=== PATIENT | female | born 1945 | race Caucasian/White ===

== ENCOUNTER 2017-03-09 15:59 | Inpatient (IN) | payer MEDICARE, OTHER ==
[2017-03-09 17:50] LABS: #Eosinphils 0.3 thou/uL (0.0-0.7); #Lymphocytes 2.7 thou/uL (1.20-3.40); #Monocytes 0.7 thou/uL (0.11-0.59); #Neutrophils 10.3 thou/uL (1.40-6.50); %Basophils 0.3 % (0.0-1.0); %Eosinophils 1.9 % (0.0-10.0); %Lymphocytes 19.1 % (21.0-51.0); %Monocytes 5.1 % (0.0-10.0); Hematocrit 48.3 % (36.0-47.0); Mean Platelet Volume 6.3 fL (7.4-10.4); Red Blood Cell (RBC) Count 4.93 mill/uL (4.20-5.40)
[2017-03-09 18:06] LABS: Lactic Acid - Sepsis 1.9 mmol/L (0.5-2.2)
[2017-03-09 18:11] LABS: ALT (SGPT) 17 U/L (8-55); AST (SGOT) 15 U/L (5-34); Alkaline Phosphatase 71 U/L (40-150); Anion Gap 16 mmol/L (10-20); BUN (Urea Nitrogen) 11 mg/dL (9.8-20.1); Bilirubin, Total 0.4 mg/dL (0.2-1.2); Calc. Creatinine Clearance 0 mL/min (70-130); Calcium 9.8 mg/dL (7.8-10.44); Carbon Dioxide 25 mmol/L (23-31); Chloride 103 mmol/L (98-107); Estimated GFR-MDRD Greater than 90; Globulin 3.1 g/dL (2.4-3.5); Protein, Total 7.3 g/dL (6.0-8.3)
[2017-03-09] MEDS ORDERED: Meropenem 1 GM in Sodium Chloride 0.9% 100 ML IVPB SCH (20:00)
[2017-03-09] MEDS ORDERED: MEROPENEM 1 GM/50 ML 1 GM in Premix Bag 1 BAG IVPB SCH (20:15)
[2017-03-09] MEDS ORDERED: Ondansetron ODT 4 MG TAB PO PRN (20:50)
[2017-03-09] MEDS ORDERED: Acetaminophen 325 MG TAB PO PRN ×2 (20:50→23:16)
[2017-03-09] MEDS ORDERED: Bisacodyl 5 MG TAB PO PRN ×2 (20:50→23:28)
[2017-03-09 22:31] VITALS: BMI 28.1
[2017-03-09] MEDS ORDERED: Atropine Sulfate 1% Ophth Soln 5 ml Bottle EA EYE PRN (23:16)
[2017-03-09] MEDS ORDERED: Cyclobenzaprine 10 MG TAB PO PRN (23:28)
[2017-03-09] MEDS ORDERED: Cepastat Lozenges 1 LOZ PO PRN (23:28)
[2017-03-09] MEDS ORDERED: Promethazine HCl 25 MG SUPP PR PRN (23:28)
[2017-03-09] MEDS ORDERED: Preparation H Ointment 28 GM TUBE PR PRN (23:28)
[2017-03-09] MEDS ORDERED: Loratadine 10 MG TAB PO PRN (23:28)
[2017-03-09] MEDS ORDERED: Mag-Al Plus 1200 MG/1200 MG/120 MG/30 ML UDCUP PO PRN (23:28)
[2017-03-09] MEDS ORDERED: Nystatin Cream 15 GM TUBE TOP PRN (23:28)
[2017-03-09] MEDS ORDERED: Bisacodyl 10 MG SUPP PR PRN (23:28)
[2017-03-09] MEDS ORDERED: Oxymetazoline HCl 0.05% ( 15 ML ) NASAL PRN (23:28)
[2017-03-09] MEDS ORDERED: Artificial Tears 18 DROP/0.9 ML EA EYE PRN (23:28)
[2017-03-09] MEDS ORDERED: Milk Of Magnesia 30 ML UDCUP PO PRN (23:28)
[2017-03-10] MEDS: Lorazepam 1 MG TAB PO PRN ×2 (01:31→19:49)
[2017-03-10] MEDS: Sodium Chloride 0.9% 1,000 ML IV SCH ×4 (01:31→20:23)
[2017-03-10] MEDS ORDERED: MEROPENEM 1 GM/50 ML 1 GM in Premix Bag 1 BAG IVPB SCH ×2 (04:00→05:00)
[2017-03-10] MEDS ORDERED: Meropenem 1 GM in Sodium Chloride 0.9% 100 ML IVPB SCH (04:00)
[2017-03-10 05:19] LABS: #Basophils 0.1 thou/uL (0.0-0.2); #Eosinphils 0.3 thou/uL (0.0-0.7); #Lymphocytes 5.2 thou/uL (1.20-3.40); #Monocytes 1.1 thou/uL (0.11-0.59); #Neutrophils 8.4 thou/uL (1.40-6.50); %Basophils 0.7 % (0.0-1.0); %Eosinophils 1.7 % (0.0-10.0); %Lymphocytes 34.4 % (21.0-51.0); %Monocytes 7.3 % (0.0-10.0); Hematocrit 44.6 % (36.0-47.0); Mean Platelet Volume 6.7 fL (7.4-10.4); Red Blood Cell (RBC) Count 4.54 mill/uL (4.20-5.40); White Blood Cell (WBC) Count 15.1 thou/uL (4.8-10.8)
[2017-03-10 05:36] LABS: Anion Gap 15 mmol/L (10-20); BUN (Urea Nitrogen) 8 mg/dL (9.8-20.1); Calc. Creatinine Clearance 122 mL/min (70-130); Calcium 9.1 mg/dL (7.8-10.44); Carbon Dioxide 24 mmol/L (23-31); Chloride 104 mmol/L (98-107); Estimated GFR-MDRD Greater than 90
[2017-03-10] MEDS ORDERED: Oxymetazoline HCl 0.05% ( 15 ML ) NASAL PRN (05:53)
--- NOTE | 2017-03-10 06:19 | PDOC.FM ---
- Subjective Subjective: Patient doing well this AM. No significant overnight events. Patient denies any dysuria. She does have indwelling catheter that gets changed weekly. Over a week ago they changed the catheter and noted it to have a lot of sediment. Patient was never symptomatic, however, they opted to do UA and urine culture which grew proteus >100,000. Patient denies any shortness of breath, chest pain , fever, or chills. - Objective MAR Reviewed: Yes Vital Signs & Weight: Vital Signs (12 hours) Temp Pulse Resp Pulse Ox 03/09/17 23:20 97.7 F 76 16 98 I&O: 03/08/17 03/09/17 03/10/17 06:59 06:59 06:59 Intake Total 1020 Output Total 400 Balance 620 Result Diagrams: 03/10/17 04:31 03/10/17 04:31 EKG Reviewed by me: No Radiology Reviewed by me: No <Afua Buchanan - Last Filed: 03/10/17 08:33> - Objective Vital Signs & Weight: Vital Signs (12 hours) Temp Pulse Resp Pulse Ox 03/10/17 10:43 76 03/10/17 07:55 97.7 F 76 16 97 03/09/17 23:20 97.7 F 76 16 98 I&O: 03/09/17 03/10/17 03/11/17 06:59 06:59 06:59 Intake Total 1020 Output Total 400 Balance 620 Result Diagrams: 03/10/17 04:31 03/10/17 04:31 <Coleman Styles - Last Filed: 03/10/17 10:53> Phys Exam - Physical Examination Constitutional: NAD HEENT: moist MMs, sclera anicteric Neck: supple Respiratory: clear to auscultation bilateral Cardiovascular: RRR, no significant murmur Gastrointestinal: soft, non-tender, no distention, positive bowel sounds Musculoskeletal: pulses present Atrophy of UE's and LE's Quadriplegia Psychiatric: A&O x 3 Skin: no rash, cap refill <2 seconds <Afua Buchanan - Last Filed: 03/10/17 08:33> Dx/Plan (1) UTI (urinary tract infection) Status: Acute (2) Leukocytosis Code(s): D72.829 - ELEVATED WHITE BLOOD CELL COUNT, UNSPECIFIED Status: Acute (3) Multiple sclerosis Code(s): G35 - MULTIPLE SCLEROSIS Status: Chronic (4) Hyperlipidemia Code(s): E78.5 - HYPERLIPIDEMIA, UNSPECIFIED Status: Acute (5) Glaucoma Code(s): H40.9 - UNSPECIFIED GLAUCOMA Status: Acute - Plan Plan: Plan: UTI requiring IV antibiotics - Outside cultures show sensitivities to all oral antibiotics for which patient is allergic; grew proteus >100,000 - Strict I&O's - AM CBC's - Consult ID - Urine cx pending - Continue meropenem Leukocytosis - 2/2 to above Multiple sclerosis - Continue home medications - Quadriplegia 2/2 MS HLD - Continue home medications Glaucoma - Continue home medications Hx of unknown arrhythmia - Continue verapamil <Afua Buchanan - Last Filed: 03/10/17 08:33> Attending Addendum - Attending Addendum I personally evaluated the patient and discussed the management with Dr. Buchanan I agree with the History, Examination, Assessment and Plan documented above with any addition or exceptions noted below. Complicated situation. Patient with MS, chronic indwelling mares and recurrent UTIs. She is allergic to multiple drugs. She is currently asymptomatic, although her WBC count is elevated. She denies fever, nausea, vomiting, or pain , although I don't think she can feel pain from her bladder. Dr. Renee is familiar with her and we will ask for his help. Not sure we have to treat this infection. I would suggest using a silver impregnated catheter now and in the future. <Coleman Styles - Last Filed: 03/10/17 10:53>
[2017-03-10 06:36] LABS: Bilirubin Negative (Negative); Blood, Urine Moderate (Negative); Glucose, Urine (Dipstick) Negative (Negative); Ketone, Urine Trace mg/dL (Negative); Nitrite Negative (Negative); Protein, Urine (Dipstick) 30 mg/dL (Neg-Trace); Urobilinogen 0.2 mg/dL (0.2-1.0)
[2017-03-10 06:39] LABS: Bacteria/HPF 4+ HPF (None Seen); RBC/HPF 21-50 HPF (0-3); Squamous Epithelial None Seen HPF (0-3)
[2017-03-10 07:42] LABS: Yeast-All Forms None Seen HPF (None Seen)
[2017-03-10] MEDS ORDERED: fentaNYL 75 mcg/hour Patch TD SCH (09:00)
[2017-03-10] MEDS: Multivitamin W/ Minerals 1 TAB PO SCH (09:27)
[2017-03-10] MEDS: Ascorbic Acid 500 mg Chewable Tablet PO SCH ×2 (09:27→20:04)
[2017-03-10] MEDS: Senokot S 8.6-50 MG TAB PO SCH ×3 (09:27→20:05)
[2017-03-10] MEDS: Floranex Packet PO SCH (09:28)
[2017-03-10] MEDS: Enoxaparin Sodium 40 MG/0.4 ML SYRINGE SC SCH (09:28)
[2017-03-10] MEDS: Verapamil SR 120 MG TAB PO SCH (09:38)
[2017-03-10] MEDS: Timolol 0.5% Ophth Soln 5 ml Bottle EA EYE SCH ×2 (10:43→19:59)
--- NOTE | 2017-03-10 11:49 | HP-2 ---
CODE STATUS: DNR. PRIMARY CARE PHYSICIAN: Kian Nova ATTENDING: Dr. Chris Dominguez RESIDENT: Rhonda Mathews D.O. HISTORIAN: Patient. CHIEF COMPLAINT: Urinary tract infection. HISTORY OF PRESENT ILLNESS: The patient is a 71-year-old female who was transferred here from outside facility [facility] for a positive UA and urine culture growing out Proteus. Urine culture is pansensitive except for Bactrim, the problem is all other p.o. medications that the bacteria is sensitive to are known drug allergies of the patient. The patient is asymptomatic and denies any dysuria, no back pain or flank pain, no suprapubic pain. No frequency or urgency. No altered mental status or confusion. No fever, tachycardia or white count and is initially seen asymptomatic in our opinion. When talking with [facility] it is evident that there is concern for a symptomatic UTI with reported increased confusion in the patient by director distribution at [facility] The patient has a history of neurogenic bladder and has a cath in place. It gets changed once weekly, last changed on 03/05/2017. The patient also has a past history of UTIs, one in which she was seen for 1 year ago here in the hospital and met sepsis criteria, and Dr. Renee was consulted for antibiotic treatment due to her known allergies. In the ER, she received 1 gram meropenem. PAST MEDICAL HISTORY: 1. Hyperlipidemia. 2. MS. 3. Chronic pain. 4. ? Hydrocephalus. PAST SURGICAL HISTORY: Back, shoulder, kidney, stent. ALLERGIES: 1. CEPHALEXIN MONOHYDRATE. 2. CEPHALEXIN. 3. CIMETIDINE. 4. CIMETIDINE HCl. 5. CIPRO. 6. CIPRO HCL. 7. DEXTROSE. 8. DOXYCYCLINE. 9. LATEX. 10. MORPHINE. 11. . 12. PENICILLIN. 13. POLYETHYLENE GLYCOL. 14. PSYLLIUM HUSK AND SEED. 15. SUCROSE. 16. SULFA. MEDICATIONS: The patient did bring updated medication list from [facility]. The patient takes Crestor, cyclobenzaprine, fentanyl, Florajen, lactulose, lorazepam, Lumigan, Milk of Magnesia, Senna and verapamil. FAMILY HISTORY: Noncontributory. SOCIAL HISTORY: Denies tobacco, alcohol and drug use. REVIEW OF SYSTEMS: A 12-point review of systems was performed. The patient denies those mentioned in the HPI as well as fever, chills, weight changes, appetite changes, abdominal pain, flank pain, dysuria. PHYSICAL EXAMINATION: VITAL SIGNS: Blood pressure 137/74, pulse 78, respiratory rate 18, T-max 98.1, pulse ox 98% on room air. Current weight 56.7 kilograms. GENERAL: The patient is alert and oriented x4, no acute distress, well- nourished. EYES: EOMI. NECK: Supple, without lymphadenopathy. RESPIRATORY: Normal. No retractions. Clear to auscultation bilaterally. ABDOMEN: Soft, nontender. Bowel sounds present. No mass or distention. EXTREMITIES: No clubbing, cyanosis or edema. MUSCULOSKELETAL: GCS 15. PSYCHIATRIC: Appropriate. MUSCULOSKELETAL: Structure within normal limits. NEUROLOGIC: No focal deficit. Does report chronic quadriplegia with MS disease. PSYCHIATRIC: Appropriate. LABORATORY DATA: 1. CBC, white blood cell count 14, hemoglobin 15.7, hematocrit 48.3, platelets 370. 2. Chemistry: Sodium 140, potassium 3.6, chloride 103, CO2 25, BUN 11, creatinine 0.47, glucose 118. GFR greater than 90. 3. Calcium 9.8, total protein 7.3, albumin 4.2, total bilirubin 0.4, AST 15 and ALT 17, and alkaline phosphatase 71. 4. Lactic acid was 1.9 and normal. ASSESSMENT AND PLAN: 1. Urinary tract infection. Asymptomatic bacteria versus early signs of bacterial cystitis. We will treat for bacterial cystitis in only on the basis of history reported by [facility]iary physician who saw her today. It is possible that the patient has transient symptoms and/or has a baseline state of which we are not aware of. We will treat with IV meropenem and IV fluids at 120mls/hr. Blood cultures and urine cultures are pending, as well as urinalysis. As stated above, the patient does not meet systemic inflammatory response syndrome criteria. Likely consult ID to verify proper treatment. 2. Multiple sclerosis, quadriplegic. We will provide home medications and supportive care. Was able to receive handicap call button from [facility]. 3. Hyperlipidemia. We will provide home medications. 4. Chronic pain, we will provide home medications. 5. History of arrhythmia, we will continue verapamil. 6. Anxiety; home meds and special call button in place. 6. Prophylaxis. Lovenox. DISPOSITION AND LENGTH OF HOSPITAL STAY: 1-2 days. Symptomatic medications will be provided. The history and physical exam as well as management discussed with Dr. Chris Dominguez. [facility]ITAL[facility]
--- NOTE | 2017-03-10 19:25 | CON ---
DATE OF CONSULTATION: 03/10/2017 REASON FOR CONSULTATION: Urinary tract findings. HISTORY OF PRESENT ILLNESS: A 71-year-old known to us from prior visits, who has a longstanding history of multiple sclerosis with severe neurological impairment with quadriparesis, hypertension, neurogenic bladder, requiring indwelling Gay catheter and prior urinary tract complications including nephrolithiasis, which has required surgical interventions. I last saw her in 03/2016, when she presented with nausea and vomiting and at that time, she was treated with carbapenem for an E. coli isolate. Therapy was given for about 10 days. She has been in the hospital since. This time she was brought in and the patient herself was surprised that she was brought into the hospital, the main reason was because they found some abnormalities in the urinary tract and they sent her to be admitted. Initial findings with a blood pressure 137/74, pulse 78, respiratory rate 18, temperature 98.1. Patient actually felt pretty well, considering her neurological impairment, denied any headaches, no vomiting , no visual symptoms, sore throat, no odynophagia, no diarrhea, continues with a Gay catheterization. No respiratory symptoms. Her initial labs with WBC count 15.1, hemoglobin 14.8, platelets 325 with 72% neutrophils. The patient of note always keeps mildly to moderately elevated WBC count. I think her normal baseline level was in the lower teens for WBC count. The creatinine was normal and other electrolytes were within normal limits. Albumin was 4.2 and urinalysis as expected had pyuria. Since she has a chronic indwelling Gay catheter. Cultures have been obtained. PAST MEDICAL HISTORY: Includes severe multiple sclerosis with quadriparesis, hypertension, neurogenic bladder, nephrolithiasis, prior urological interventions, and then no recurrence of stones since last year, prior CYCLE LIAISON shunt placement, recurrent UTIs, and chronic indwelling Gay catheter. SOCIAL HISTORY: Resident at [facility] in [place]. Never smoker. ALLERGIES: KEFLEX, CIPRO, DOXY, PENICILLIN, SULFA DRUGS, MACROBID. FAMILY HISTORY: Diabetes type 2. MEDICATION LIST: Flexeril, Colace, Lovenox, Duragesic, Xalatan, Ativan, verapamil, and currently p.r.n. medications, Floranex, vitamin C, Dulcolax, Flexeril, Lovenox, Motrin, multivitamins, Claritin, Zofran, Crestor, Phenergan p.r.n., verapamil. PHYSICAL EXAMINATION: VITAL SIGNS: Patient has been afebrile in the hospital. Blood pressure 140/70 , pulse 76, respirations 16, and O2 sat 98%. SKIN: With no areas of skin breakdown. She has a Gay catheter in place, peripheral IV access. No lymphadenopathy. HEENT: Ocular movements are conjugate. Oral cavity with moist mucosa. Numerous teeth in place. GENERAL: She is pleasant, awake, alert. Generalized stiffness, hyperreflexia. LUNGS: With symmetric air entry without crackles or wheezing. HEART: S1 and S2, regular rate. No S3 or S4. ABDOMEN: Soft and not distended. No ascites, quadriparesis, hyperreflexia, Gay catheter. NEUROLOGIC: Cognitive function appears to be intact. LABORATORY DATA: Labs have been reviewed above. ASSESSMENT: Severe multiple sclerosis with quadriparesis, neurogenic bladder and prior complications referred to above this with no findings in the urinary tract that led to transfer of the patient to the hospital for admission. DISCUSSION: At this time, I do not believe that she has a strong reason to receive systemic antimicrobial therapy. We will repeat her ultrasound of the kidneys to make sure she has no hydronephrosis. If not, then I would send her back to the custodial with clarification that urinary cultures or urinalysis should not be submitted unless patient was symptomatic or with fever. CARLENE
--- NOTE | 2017-03-10 19:55 | ULT ---
EXAM: RENAL ULTRASOUND: 03/10/17 HISTORY: Evaluate for hydronephrosis. COMPARISON: None. TECHNIQUE: Sagittal and transverse imaging of the kidneys is performed. FINDINGS: Bilaterally, no hydronephrosis. Bilateral renal cortical thinning. Right kidney measures 11.7 x 4.4 x 4.3 cm. Left kidney measures 12.2 x 6.2 x 5.8 cm. There is an anechoic focus adjacent to the upper pole of th e left kidney measuring 4.3 x 4.6 x 4.7 cm. Exophytic cyst is favored. The urinary bladder is decompressed with Gay catheterization. IMPRESSION: 1. No hydronephrosis. 2. Bilateral renal cortical thinning. POS: RIP
[2017-03-10] MEDS: Ibuprofen 200 MG TAB PO PRN (19:58)
[2017-03-10] MEDS ORDERED: Latanoprost 0.005% Ophth Soln 2.5 ml Bottle EA EYE SCH (21:00)
[2017-03-11] MEDS: Ibuprofen 200 MG TAB PO PRN (02:39)
[2017-03-11] MEDS: Sodium Chloride 0.9% 1,000 ML IV SCH (05:15)
[2017-03-11] MEDS: Lorazepam 1 MG TAB PO PRN (05:16)
[2017-03-11 05:48] LABS: #Basophils 0.1 thou/uL (0.0-0.2); #Eosinphils 0.3 thou/uL (0.0-0.7); #Lymphocytes 5.5 thou/uL (1.20-3.40); #Monocytes 0.7 thou/uL (0.11-0.59); %Basophils 0.9 % (0.0-1.0); %Eosinophils 2.7 % (0.0-10.0); %Lymphocytes 47.4 % (21.0-51.0); %Monocytes 6.2 % (0.0-10.0); Hematocrit 42.7 % (36.0-47.0); Mean Platelet Volume 6.7 fL (7.4-10.4); Red Blood Cell (RBC) Count 4.34 mill/uL (4.20-5.40); White Blood Cell (WBC) Count 11.7 thou/uL (4.8-10.8)
[2017-03-11 06:03] LABS: Anion Gap 7 mmol/L (10-20); BUN (Urea Nitrogen) 7 mg/dL (9.8-20.1); Calc. Creatinine Clearance 131 mL/min (70-130); Calcium 8.5 mg/dL (7.8-10.44); Carbon Dioxide 28 mmol/L (23-31); Chloride 106 mmol/L (98-107); Estimated GFR-MDRD Greater than 90
--- NOTE | 2017-03-11 06:21 | PDOC.FM ---
- Subjective Subjective: Patient doing well this AM. No significant overnight events. She is alert and oriented. No complaints. Patient states her desire to return to the [place]. - Objective MAR Reviewed: Yes Vital Signs & Weight: Vital Signs (12 hours) Temp Pulse Resp BP BP Pulse Ox 03/10/17 20:35 98.0 F 82 18 03/10/17 20:00 98.0 F 82 18 131/63 95 03/10/17 19:59 75 136/81 I&O: 03/09/17 03/10/17 03/11/17 06:59 06:59 06:59 Intake Total 1020 480 Output Total 400 Balance 620 480 Result Diagrams: 03/11/17 04:10 03/11/17 04:10 EKG Reviewed by me: No Radiology Reviewed by me: No <Afua Buchanan - Last Filed: 03/11/17 08:11> - Objective Vital Signs & Weight: Vital Signs (12 hours) Temp Pulse Resp BP BP Pulse Ox 03/11/17 09:06 71 146/72 H 03/11/17 08:09 98 F 72 22 H 146/72 H 97 I&O: 03/10/17 03/11/17 03/12/17 06:59 06:59 06:59 Intake Total 1020 480 Output Total 400 1100 Balance 620 -620 Result Diagrams: 03/11/17 04:10 03/11/17 04:10 <Coleman Styles - Last Filed: 03/11/17 10:20> Phys Exam - Physical Examination Constitutional: NAD HEENT: moist MMs, sclera anicteric Neck: supple Respiratory: clear to auscultation bilateral Cardiovascular: RRR, no significant murmur Gastrointestinal: soft, non-tender, no distention, positive bowel sounds Musculoskeletal: no edema Quadriplegia Psychiatric: A&O x 3 Skin: no rash, cap refill <2 seconds <Afua Buchanan - Last Filed: 03/11/17 08:11> Dx/Plan (1) UTI (urinary tract infection) Status: Acute (2) Leukocytosis Code(s): D72.829 - ELEVATED WHITE BLOOD CELL COUNT, UNSPECIFIED Status: Acute (3) Multiple sclerosis Code(s): G35 - MULTIPLE SCLEROSIS Status: Chronic (4) Hyperlipidemia Code(s): E78.5 - HYPERLIPIDEMIA, UNSPECIFIED Status: Acute (5) Glaucoma Code(s): H40.9 - UNSPECIFIED GLAUCOMA Status: Acute QualifierTitle: Primary angle closure glaucoma type: chronic Laterality: bilateral - Plan Plan: Plan: UTI requiring IV antibiotics - Outside cultures show sensitivities to all oral antibiotics for which patient is allergic; grew proteus >100,000 - Strict I&O's; 400 ml out of mares - ID consulted; appreciate recs - Urine cx pending; will not treat if positive, patient asymptomatic and no signs of infection - D/C all systemic antibiotic therapy per ID - Patient to return home to [facility] with the understanding that UA and Urine cx should not be collected unless patient has fever, N/V, or other signs of infection - Consider silver impregnated catheter Leukocytosis - 2/2 to above Multiple sclerosis - Continue home medications - Quadriplegia 2/2 MS HLD - Continue home medications Glaucoma - Continue home medications Hx of unknown arrhythmia - Continue verapamil Dispo: D/C home today <Afua Buchanan - Last Filed: 03/11/17 08:11> Attending Addendum - Attending Addendum I personally evaluated the patient and discussed the management with Dr. Buchanan I agree with the History, Examination, Assessment and Plan documented above with any addition or exceptions noted below. We appreciate the help from Dr. Renee. He recommends no treatment for urine unless she is symptomatic. In this case, she is not. We will send her back to the correction today. He recommends no cultures unless she has a fever, pain, etc. Pharmacy suggests using silver impregnated catheters. We are discussing this with her primary, Dr. Escobedo. She is ready for discharge today. <Coleman Styles - Last Filed: 03/11/17 10:20>
[2017-03-11] MEDS ORDERED: Selenium Sulfide 1% Shampoo 210 ML BOT TOP SCH (09:00)
[2017-03-11] MEDS: Ascorbic Acid 500 mg Chewable Tablet PO SCH (09:04)
[2017-03-11] MEDS: Multivitamin W/ Minerals 1 TAB PO SCH (09:04)
[2017-03-11] MEDS: Senokot S 8.6-50 MG TAB PO SCH (09:04)
[2017-03-11] MEDS: Enoxaparin Sodium 40 MG/0.4 ML SYRINGE SC SCH (09:05)
[2017-03-11] MEDS: Verapamil SR 120 MG TAB PO SCH (09:06)
[2017-03-11] MEDS: Timolol 0.5% Ophth Soln 5 ml Bottle EA EYE SCH (09:06)
[2017-03-11] MEDS: Floranex Packet PO SCH (09:07)
[2017-03-11 12:04] VITALS: BP 117/70; TEMP 97.8
--- NOTE | 2017-03-11 19:21 | DIS-2 ---
DATE OF ADMISSION: 03/09/2017 DATE OF DISCHARGE: 03/11/2017 RESIDENT: Afua Buchanan DO ADMITTING ATTENDING: Chris Dominguez M.D. DISCHARGE ATTENDING: Coleman Styles M.D. CONSULTATIONS: Infectious Disease, Dr. Donis Renee. PROCEDURES: Renal ultrasound, no hydronephrosis. Bilateral renal cortical thinning. HISTORY OF PRESENT ILLNESS AND HOSPITAL COURSE: This is a 71-year-old female who was transferred from [facility] for positive UA and urine culture growing out Proteus greater than 100,000. The urine culture sensitivities are mostly pansensitive except for Bactrim. However, the patient is allergic to all p.o. medications that the bacteria is sensitive to. The patient is asymptomatic. She denies dysuria, back or flank pain, fever, nausea or vomiting or suprapubic pain. However, it is difficult for her to indicate any true urinary symptoms secondary to paraplegia from multiple sclerosis. She has not had any altered mental status or confusion. Additionally, her white count is only mildly elevated. The [facility] was contacted as the patient was not exhibiting any signs of infection and they noted that she was having some confusion. The patient has a history of neurogenic bladder and has a cath in place. She has a chronic indwelling catheter that is changed out weekly. Last change was on 03/05/2017. The patient does have a history of past UTIs. She was seen for 1 year ago here in the hospital. She met sepsis criteria at that time and was evaluated by Dr. Renee, the Infectious Disease specialist. She was started on antibiotic treatment per Dr. Renee at that time. In the ER, she did receive 1 gram of meropenem and this was continued on the floor. Dr. Renee was consulted again for recommendations regarding whether or not patient needed antibiotic therapy and if she did which antibiotics to treat with. He evaluated the patient and had a renal ultrasound performed to rule out hydronephrosis. Renal ultrasound was insignificant and Dr. Renee advised that patient not be treated with systemic antibiotics. He stated that a urinalysis and urine culture should not be collected at the care home unless the patient was exhibiting signs of infection including nausea, vomiting, and fever. The patient has had completely normal mental status since being here at the hospital and thus concern for true infection was very low. Of note, patient will be chronically colonized with bacteria. She does have an indwelling catheter. Dr. Renee has asked that this information be passed on to the care home. The call center director, Kirsten was contacted and notified of Dr. Renee' recommendations. Additionally, the patient's son was contacted and all of the above information was explained. Both individuals were in understanding of the decision. Additionally, Dr. Escobedo, the patient's primary care physician's office was contacted. I spoke with Lala, the nurse at Dr. Escobedo's office and discussed that patient did not need to be on antibiotic therapy at this time per the recommendations of our infectious disease specialist. Additionally, I did mention the recommendation for a silver impregnated catheter to be used instead of patient's current catheter at the suggestive of our pharmacy as the catheters have been showing to decrease incidence of symptomatic urinary tract infections. Additionally, they do not have to be changed out as often which may add convenience. Lala took notes so that she could have this information relayed to Dr. Escobedo. The patient remained completely stable throughout the course of her hospital stay. She was entirely asymptomatic and did have a white count, but it downtrended throughout the course of hospital stay. Additionally, a urinalysis did show large leukocyte esterase and greater than 50 wbc's with 4+ bacteria. However, her urine culture grew out greater than 100,000 of mixed enteric jordi which was suggestive for possible contamination. Again, the recommendation was not to treat at this time. This was all explained with the patient as well and she was very agreeable and stated that Dr. Renee has told her this in the past that she should not have her urine collected unless she was exhibiting symptoms to include nausea, vomiting or fever. She was upset that the urine culture and urinalysis were performed in the first place and said that she felt perfectly fine and was ready to go back to [facility]. Everything was set in place for the patient to be discharged back. DISPOSITION: Stable. DISCHARGE INSTRUCTIONS: 1. Location: [facility]. 2. Diet: Regular. 3. Activity: Orthopedic limitations. 4. Followup: The patient is to follow up with Dr. Escobedo, her primary care physician. His office was notified of management decisions and he will be following up with her accordingly. CARLENE
[2017-03-12] MEDS ORDERED: fentaNYL 75 mcg/hour Patch TD SCH (09:00)
--- NOTE | 2017-03-15 17:58 | PQF ---
DANILO LOGAN DAVID MD [id number] CLINICAL DOCUMENTATION CLARIFICATION FORM: POST DISCHARGE Addendum to original discharge summary date: ____ Late entry note date: __ DATE: 03/15/2017 Please exercise your independent, professional judgment in responding to the clarification form. Clinical indicators are provided on the bottom of this form for your review Please check appropriate box(s): [ ] UTI please specify if due to or related to (as applicable): [ ] Indwelling catheter [ ] Self-catheterization [ ] Suprapubic catheter [ ] Unable to determine etiology UTI Site: [ ] Kidney [ ] Ureter [ ] Bladder [ ] Urethra [ ] Unable to determine Specify Organism (if known): [ ] Unknown organism [ ] Contaminated urine specimen without UTI [ ] Other diagnosis [ ] Unable to determine In addition, please specify: Present on Admission (POA): [ ] Yes [ ] No [ ] Unable to determine For continuity of documentation, please document condition throughout progress notes and discharge summary. Thank You. CLINICAL INDICATORS - SIGNS / SYMPTOMS / LABS ER: Mares in place. Urinary catheter present, draining cloudy DC Summary: Positive urinalysis, urine culture growing out proteus greater than 100,000 The [facility] was contacted as the patient was not exhibiting any signs of infection History of neurogenic bladder and has a cath in place Urinalysis did show large leukocyte esterase and greater than 100,000 of mixed enteric jordi which was suggestive for possible contamination Patient has a cath in place. She has a chronic indwelling catheter that is changed out weekly. 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 Doubt UTI. No signs or symptoms CONSULT: PAST MEDICAL HISTORY: Recurrent UTIs, chronic indwelling catheter RISK FACTORS History of neurogenic bladder History self-cath/indwelling catheter Debility / snf resident TREATMENT: Antibiotics IVF Mares cath removed / changed (This form is maintained as a part of the permanent medical record) 2014 [employer], [place]. All Rights Reserved Gerardo [email or web address] [phone] MTDD
== END 2017-03-11 11:48 | DRG 689 ==
LOC: ERS 15:59 → T4-A 20:49
PROVIDERS: ADMIT Family Medicine; ATTEND Family Medicine
DX: N39.0 Urinary tract infection, site not specified (principal); G82.50 Quadriplegia, unspecified; N31.9 Neuromuscular dysfunction of bladder, unspecified; G35 Multiple sclerosis; G82.20 Paraplegia, unspecified; E78.5 Hyperlipidemia, unspecified; I49.9 Cardiac arrhythmia, unspecified; F41.9 Anxiety disorder, unspecified; I10 Essential (primary) hypertension; D72.829 Elevated white blood cell count, unspecified; H40.9 Unspecified glaucoma
CPT/HCPCS: 36415; 76770; 80048; 80053; 81001; 83605; 85025; 87040; 87086; 96374; G8981-GP-CN; G8982-GP-CN; G8983-GP-CN; G8987-GO-CM; G8988-GO-CM; G8989-GO-CM; J1650; J2185; J7050

== ENCOUNTER 2017-04-11 11:03 | Emergency (ER) | payer MEDICARE, OTHER ==
[2017-04-11 12:04] LABS: #Eosinphils 0.2 thou/uL (0.0-0.7); #Lymphocytes 1.6 thou/uL (1.20-3.40); #Monocytes 0.6 thou/uL (0.11-0.59); #Neutrophils 4.9 thou/uL (1.40-6.50); %Basophils 0.1 % (0.0-1.0); %Eosinophils 2.8 % (0.0-10.0); %Lymphocytes 22.1 % (21.0-51.0); %Monocytes 8.3 % (0.0-10.0); %Neutrophils 66.7 % (42.0-75.0); Hemoglobin 14.6 g/dL (12.0-16.0); Mean Corpuscular HGB CONC 31.2 g/dL (32.0-36.0); Mean Corpuscular Hemoglobin 30.8 pg (27.0-31.0); Mean Corpuscular Volume 98.5 fl (81.0-99.0); Platelet Count 294 thou/uL (130-400); RBC Distribution Width 11.5 % (11.5-14.5); Red Blood Cell (RBC) Count 4.75 mill/uL (4.20-5.40); White Blood Cell (WBC) Count 7.3 thou/uL (4.8-10.8)
[2017-04-11 12:32] LABS: ALT (SGPT) 20 U/L (8-55); AST (SGOT) 19 U/L (5-34); Albumin 4.1 g/dL (3.4-4.8); Alkaline Phosphatase 72 U/L (40-150); Anion Gap 15 mmol/L (10-20); BUN (Urea Nitrogen) 9 mg/dL (9.8-20.1); Bilirubin, Total 0.3 mg/dL (0.2-1.2); Calc. Creatinine Clearance 0 mL/min (70-130); Calcium 9.7 mg/dL (7.8-10.44); Carbon Dioxide 29 mmol/L (23-31); Chloride 99 mmol/L (98-107); Estimated GFR-MDRD Greater than 90; Globulin 2.9 g/dL (2.4-3.5); Glucose 113 mg/dL (83-110); Potassium 3.5 mmol/L (3.5-5.1); Sodium 139 mmol/L (136-145)
--- NOTE | 2017-04-11 12:37 | RAD ---
CHEST ONE VIEW: History: Cough. Comparison: 03-14-16 FINDINGS: Mild blunting of left lateral costophrenic focus. Cardiac silhouette size is upper limits of normal. No pneumothorax. No acute osseous abnormality. IMPRESSION: No significant change in the chest. Mild blunting of the left lateral costophrenic focus may reflect small effusion versus scar. POS: [facility]
[2017-04-11 13:08] LABS: Bilirubin Negative (Negative); Blood, Urine Small (Negative); Clarity TURBID (Clear); Glucose, Urine (Dipstick) Negative (Negative); Leukocyte Large (Negative); Nitrite Positive (Negative); Protein, Urine (Dipstick) Trace mg/dL (Neg-Trace); Specific Gravity, Urine 1.017 (1.002-1.036); pH, Urine 7.5 (5.0-9.0)
[2017-04-11 13:10] LABS: Bacteria/HPF 4+ HPF (None Seen); Squamous Epithelial 0-3 HPF (0-3)
[2017-04-11 13:20] LABS: RBC/HPF 0-3 HPF (0-3)
[2017-04-11 13:21] LABS: Hyaline Casts/LPF 0-3 HYALINE CAST LPF (0-3 Hyaline); Manual Microscopic Reviewed? No Path Casts Seen; Yeast-All Forms None Seen HPF (None Seen)
[2017-04-11] MEDS ORDERED: Nitrofurantoin Monohyd/M-Cryst 100 MG CAP PO ONE (14:15)
== END 2017-04-11 14:59 | disposition home or self-care (01) ==
LOC: ERS 11:03
DX: J06.9 Acute upper respiratory infection, unspecified (principal); N39.0 Urinary tract infection, site not specified; E78.5 Hyperlipidemia, unspecified; I10 Essential (primary) hypertension; K21.9 Gastro-esophageal reflux disease without esophagitis; G20 Parkinson's disease; F41.9 Anxiety disorder, unspecified; Z79.899 Other long term (current) drug therapy
CPT/HCPCS: 36415; 51702; 71045; 80053; 81003; 81015; 83605; 85025; 87040